=== PATIENT | female | born 1960 | race Hispanic/Latino ===

== ENCOUNTER 2017-10-02 17:50 | Emergency (ER) | payer MEDICAID ==
[~2017-10-02 17:50] MED LIST: ACET1TAB12 PO; AMLO10TA2 PO; CLON0.2T PO; ESOM40CA PO; GLIP10TA9 PO; LABE300T2 PO; LINA5TAB PO; LOSA1TAB54 PO; METF10004 PO
[2017-10-02 18:51] LABS: BASOPHILS % (AUTO) 0.9 % (0.0-5.0); EOSINOPHILS % (AUTO) 1.7 % (0.0-8.0); HEMATOCRIT 34.2 % (36-48); LYMPHOCYTES % (AUTO) 13.2 % (21.0-51.0); MEAN CORPUSCULAR HGB CONC 35.2 g/dL (32.0-36.0); MEAN CORPUSCULAR VOLUME 96.8 fL (79-99); MONOCYTES % (AUTO) 11.4 % (3.0-13.0); NEUTROPHILS % (AUTO) 72.8 % (40.0-77.0); PLATELET COUNT (AUTO) 297 K/uL (130-400); RED BLOOD CELL COUNT(AUTO) 3.53 MIL/uL (4.00-5.50); WHITE BLOOD COUNT (AUTO) 15.6 K/uL (4.8-10.8)
[2017-10-02 19:03] LABS: CREATININE 1.3 mg/dL (0.5-1.5); POTASSIUM 3.6 mmol/L (3.5-5.1)
[2017-10-02 19:08] LABS: ALBUMIN 2.9 g/dL (3.5-5.0); BILIRUBIN,TOTAL 0.6 mg/dL (0.2-1.0); TOTAL PROTEIN, SERUM 7.8 g/dL (6.0-8.3)
[2017-10-02] MEDS ORDERED: CLINDAMYCIN 600 MG/D5% WATER 50 ML IV ONE (19:09)
[2017-10-02] MEDS ORDERED: SODIUM CHLORIDE 0.9% 1000ML 1,000 ML IV ONE (19:09)
[2017-10-02] MEDS ORDERED: LIDOCAINE HCL 1% 20 ML VIAL ONE (19:27)
[2017-10-02] MEDS ORDERED: CEFTRIAXONE SODIUM 1 GM ONE (20:17)
== END 2017-10-02 20:47 | disposition home or self-care (01) ==
LOC: EDH 17:50
DX: L02.31 Cutaneous abscess of buttock (principal); E11.9 Type 2 diabetes mellitus without complications; E78.5 Hyperlipidemia, unspecified; I10 Essential (primary) hypertension
CPT/HCPCS: 36415; 80053; 85025; 87070; 87076; 87077; 87186; 96365; 96375; 99284; J0696; J3490; J7030

== ENCOUNTER 2019-06-06 12:47 | Emergency (ER) | payer MEDICAID ==
[~2019-06-06 12:47] MED LIST changes: -AMLO10TA2 PO; +AMLO10TA7 PO; +METF-446 PO; -METF10004 PO
[2019-06-06 13:26] LABS: BASOPHILS % (AUTO) 0.4 % (0.0-5.0); EOSINOPHILS % (AUTO) 1.8 % (0.0-8.0); HEMATOCRIT 41.3 % (36-48); LYMPHOCYTES % (AUTO) 15.5 % (21.0-51.0); MEAN CORPUSCULAR HEMOGLOBIN 32.3 pg (27.0-33.0); MEAN CORPUSCULAR HGB CONC 33.4 g/dL (32.0-36.0); MEAN CORPUSCULAR VOLUME 96.7 fL (79-99); MONOCYTES % (AUTO) 8.1 % (3.0-13.0); NEUTROPHILS % (AUTO) 73.8 % (40.0-77.0); PLATELET COUNT (AUTO) 318 K/uL (130-400); RED BLOOD CELL COUNT(AUTO) 4.27 MIL/uL (4.00-5.50); RED CELL DISTRIBUTION WIDTH 12.4 % (11.0-15.5); WHITE BLOOD COUNT (AUTO) 10.8 K/uL (4.8-10.8)
[2019-06-06 13:27] LABS: APPEARANCE,URINE Clear (CLEAR); BILIRUBIN,URINE Negative (NEGATIVE); COLOR,URINE Yellow (YELLOW); GLUCOSE, URINE (UA) >=1000 mg/dL (NEGATIVE); KETONES,URINE Negative (NEGATIVE); LEUKOCYTE ESTERASE ,URINE Small (NEGATIVE); NITRATE,URINE Negative (NEGATIVE); OCCULT BLOOD,URINE Trace (NEGATIVE); PROTEIN,URINE Trace mg/dL (NEGATIVE); UROBILINOGEN,URINE 0.2 mg/dL (0.2-1.0)
[2019-06-06 13:33] LABS: POTASSIUM 3.7 mmol/L (3.5-5.1)
[2019-06-06] MEDS ORDERED: ONDANSETRON ODT 4 MG TAB ONE (13:33)
[2019-06-06] MEDS ORDERED: DICYCLOMINE HCL 10 MG/ML 2ML AMP IM ONE (13:33)
[2019-06-06 13:34] LABS: BACTERIA,URINE Rare /HPF (None Seen); RBC,URINE 0-1 /HPF (0-1); SQUAMOUS EPITHELIAL CELL,UR Rare /HPF (0-2); WBC,URINE 51-100 /HPF (0-1)
[2019-06-06 13:37] LABS: ALBUMIN 3.6 g/dL (3.5-5.0); BILIRUBIN,TOTAL 0.5 mg/dL (0.2-1.0); TOTAL PROTEIN, SERUM 8.3 g/dL (6.0-8.3)
[2019-06-06] MEDS ORDERED: NITROFURANTOIN MONOHYD/M-CRYST 100 MG CAPSULE PO ONE (14:02)
== END 2019-06-06 14:49 | disposition home or self-care (01) ==
LOC: EDH 12:47
DX: N39.0 Urinary tract infection, site not specified (principal); R19.7 Diarrhea, unspecified; I25.10 Atherosclerotic heart disease of native coronary artery without angina pectoris; E11.9 Type 2 diabetes mellitus without complications; E78.5 Hyperlipidemia, unspecified; I10 Essential (primary) hypertension; E07.9 Disorder of thyroid, unspecified; Z90.49 Acquired absence of other specified parts of digestive tract; Z98.890 Other specified postprocedural states
CPT/HCPCS: 36415; 80053; 81001; 83690; 85025; 96372; 99284; J0500

== ENCOUNTER 2019-09-12 16:19 | Inpatient (IN) | payer MEDICAID ==
[~2019-09-12] VITALS: Ht 149.9 cm; Wt 69.9 kg
[2019-09-12] MEDS ORDERED: CEFTRIAXONE SODIUM 2 GM VIAL ONE (17:03)
[2019-09-12] MEDS ORDERED: VANCOMYCIN 1GM+NS 250ML 250 ML IV ONE (17:04)
[2019-09-12] MEDS ORDERED: SODIUM CHLORIDE 0.9% 1000ML 1,000 ML IV ONE (17:04)
[2019-09-12 17:10] LABS: BASOPHILS % (AUTO) 0.4 % (0.0-5.0); EOSINOPHILS % (AUTO) 2.8 % (0.0-8.0); HEMATOCRIT 38.8 % (36-48); MEAN CORPUSCULAR HEMOGLOBIN 32.3 pg (27.0-33.0); MEAN CORPUSCULAR HGB CONC 33.8 g/dL (32.0-36.0); MEAN CORPUSCULAR VOLUME 95.6 fL (79-99); MONOCYTES % (AUTO) 8.6 % (3.0-13.0); NEUTROPHILS % (AUTO) 71.7 % (40.0-77.0); PLATELET COUNT (AUTO) 322 K/uL (130-400); RED BLOOD CELL COUNT(AUTO) 4.06 MIL/uL (4.00-5.50); RED CELL DISTRIBUTION WIDTH 13.2 % (11.0-15.5)
[2019-09-12 17:33] LABS: CARBON DIOXIDE 27 mmol/L (21-32); CHLORIDE 102 mmol/L (101-111); CREATININE 1.3 mg/dL (0.5-1.5); GLOMERULAR FILTR. RATE CALC 44 mL/min (>60); GLUCOSE,RANDOM 114 mg/dL (70-105); POTASSIUM 4.1 mmol/L (3.5-5.1); SODIUM SERUM 139 mmol/L (136-145); UREA NITROGEN, BLOOD 29 mg/dL (7-18)
[2019-09-12 17:34] LABS: INR 0.84 (0.85-1.15); PARTIAL THROMBOPLASTIN TIME 26.4 SEC (26.3-35.5); PROTHROMBIN TIME 9.1 SEC (9.6-11.6)
[2019-09-12 17:48] LABS: ALANINE AMINOTRANSFERASE 30 U/L (12-78); ALBUMIN 3.3 g/dL (3.5-5.0); ASPARTATE AMINOTRANSFERASE 20 U/L (10-37); BILIRUBIN,TOTAL 0.3 mg/dL (0.2-1.0); CREATINE KINASE, TOTAL 161 U/L (21-232); MYOGLOBIN 79 ng/mL (10-92); TOTAL PROTEIN, SERUM 8.7 g/dL (6.0-8.3); TROPONIN I < 0.04 ng/mL (0.00-0.06)
[2019-09-12 17:55] LABS: APPEARANCE,URINE Cloudy (CLEAR); BILIRUBIN,URINE Negative (NEGATIVE); COLOR,URINE Yellow (YELLOW); GLUCOSE, URINE (UA) Negative (NEGATIVE); KETONES,URINE Negative (NEGATIVE); LEUKOCYTE ESTERASE ,URINE Moderate (NEGATIVE); NITRATE,URINE Negative (NEGATIVE); OCCULT BLOOD,URINE Trace (NEGATIVE); PH,URINE 5.5 (5.0-8.0); PROTEIN,URINE POS 1+ mg/dL (NEGATIVE)
[2019-09-12 18:20] LABS: BACTERIA,URINE Few /HPF (None Seen); RBC,URINE None Seen /HPF (0-1); WBC,URINE 26-50 /HPF (0-1)
[2019-09-12] MEDS ORDERED: ACETAMINOPHEN 325 MG TAB PO PRN (19:00)
[2019-09-12] MEDS ORDERED: VANCOMYCIN PROTOCOL PER PHARMACY IV SCH (19:00)
[2019-09-12] MEDS ORDERED: LACTULOSE 20 GM/30 ML UDCUP PO PRN (19:00)
[2019-09-12] MEDS ORDERED: HYDRALAZINE HCL 20 MG/ML VIAL IV PRN (19:00)
[2019-09-12] MEDS ORDERED: MORPHINE SULFATE 2 MG/ML 1ML SYG IV PRN (19:00)
[2019-09-12] MEDS ORDERED: ONDANSETRON HCL 4 MG/2 ML VIAL IV PRN (19:00)
[2019-09-12] MEDS: INSULIN HUMULIN R 100 UNIT/ML 3ML SQ SCH (21:00)
[2019-09-12 21:10] VITALS: BP 151/82
[2019-09-12] MEDS: ZOSYN 3.375GM+NS 50ML 50 ML IV SCH (21:35)
[2019-09-12] MEDS: SODIUM CHLORIDE 0.9% 1000ML 1,000 ML IV SCH (21:35)
[2019-09-12] MEDS: VANCOMYCIN 1GM+NS 250ML 250 ML IV SCH (22:03)
[2019-09-12] MEDS ORDERED: SIMV-46 PO (23:44)
[2019-09-12] MEDS ORDERED: LABE200T5 PO (23:45)
[2019-09-12] MEDS ORDERED: DOCU250C91 PO (23:46)
[2019-09-12] MEDS ORDERED: LEVO50 PO (23:51)
[2019-09-12] MEDS ORDERED: SULF1TAB42 PO (23:53)
[2019-09-13] VITALS: BP 134/83
[2019-09-13 04:00] VITALS: BP 138/77
[2019-09-13 05:08] LABS: BASOPHILS % (AUTO) 0.4 % (0.0-5.0); HEMATOCRIT 35.8 % (36-48); MEAN CORPUSCULAR HEMOGLOBIN 31.7 pg (27.0-33.0); MEAN CORPUSCULAR HGB CONC 32.4 g/dL (32.0-36.0); MEAN CORPUSCULAR VOLUME 97.8 fL (79-99); MONOCYTES % (AUTO) 9.8 % (3.0-13.0); NEUTROPHILS % (AUTO) 68.5 % (40.0-77.0); PLATELET COUNT (AUTO) 286 K/uL (130-400); RED BLOOD CELL COUNT(AUTO) 3.66 MIL/uL (4.00-5.50); RED CELL DISTRIBUTION WIDTH 13.3 % (11.0-15.5); WHITE BLOOD COUNT (AUTO) 10.5 K/uL (4.8-10.8)
[2019-09-13] MEDS: ZOSYN 3.375GM+NS 50ML 50 ML IV SCH ×3 (05:15→20:37)
[2019-09-13 05:41] LABS: CREATININE 1.1 mg/dL (0.5-1.5)
[2019-09-13] MEDS ORDERED: KETOROLAC TROMETHAMINE 15MG/ML ONE (06:03)
--- NOTE | 2019-09-13 06:05 | NUR ---
PAIN MANAGEMENT PATIENT COMPLAINED OF PAIN TO LT ANKLE AND LT HEEL, ON A SCALE OF ONE TO TEN AT TEN. ACCORDING TO PATIENT THE MORPINE DID NOT HELP THE PAIN. I CALLED NURSE PRACTICER DRYW[employer] CARRIER INFORMED HIM OF ABOVE. ORDERS RECEIVED FOR TORADOL 15 MG IVP EVERY 6 HOURS AND NEEDED FOR PAIN 4-10. PATIENT MADE AWARE, VERBALIZED UNDERSTANDING. EDUCATION DONE ON MEDICATION PRIOR TO ADMINISTERING IT.
[2019-09-13] MEDS: INSULIN HUMULIN R 100 UNIT/ML 3ML SQ SCH ×4 (06:12→20:52)
[2019-09-13 07:33] VITALS: BP 146/85
--- NOTE | 2019-09-13 08:40 | NUR ---
DR. ZUÑIGA ATTEMPTED TO CALL MD TO INFORM OF CONSULT. NO ANSWER AT THIS TIME, WILL REATTEMPT TO CALL. Addendum: 09/13/19 at 0961 by CECILIA ZACARIAS RN RN MD AWARE OF CONSULT
[2019-09-13] MEDS ORDERED: FAMOTIDINE 20MG TAB 20 MG TAB PO SCH (09:00)
[2019-09-13] MEDS: ENOXAPARIN SODIUM 40 MG/0.4 ML SYRINGE SQ SCH (09:39)
[2019-09-13 11:25] VITALS: BP 138/84
[2019-09-13] MEDS: KETOROLAC TROMETHAMINE 15MG/ML IV PRN (13:24)
[2019-09-13 15:49] VITALS: BP 145/69
[2019-09-13] MEDS: SODIUM CHLORIDE 0.9% 1000ML 1,000 ML IV SCH (16:52)
[2019-09-13 20:00] VITALS: BP 136/70
[2019-09-13] MEDS: LABETALOL HCL 200 MG TABLET PO SCH (20:37)
[2019-09-13] MEDS: SIMVASTATIN 20 MG TABLET PO SCH (20:37)
[2019-09-14] VITALS: BP 138/76
[2019-09-14 04:00] VITALS: BP 142/80
[2019-09-14] MEDS: ZOSYN 3.375GM+NS 50ML 50 ML IV SCH ×3 (05:01→20:54)
[2019-09-14 05:55] LABS: BASOPHILS % (AUTO) 0.7 % (0.0-5.0); EOSINOPHILS % (AUTO) 3.5 % (0.0-8.0); LYMPHOCYTES % (AUTO) 23.8 % (21.0-51.0); MEAN CORPUSCULAR HEMOGLOBIN 31.8 pg (27.0-33.0); MEAN CORPUSCULAR HGB CONC 32.6 g/dL (32.0-36.0); MEAN CORPUSCULAR VOLUME 97.8 fL (79-99); NEUTROPHILS % (AUTO) 61.6 % (40.0-77.0); PLATELET COUNT (AUTO) 281 K/uL (130-400); RED BLOOD CELL COUNT(AUTO) 3.58 MIL/uL (4.00-5.50); RED CELL DISTRIBUTION WIDTH 13.2 % (11.0-15.5); WHITE BLOOD COUNT (AUTO) 8.3 K/uL (4.8-10.8)
[2019-09-14] MEDS ORDERED: INSULIN HUMULIN 70/30 100 UNIT/ML 3ML SQ ONE (06:14)
[2019-09-14 06:21] LABS: ALBUMIN 2.5 g/dL (3.5-5.0); BILIRUBIN,TOTAL 0.2 mg/dL (0.2-1.0); POTASSIUM 4.3 mmol/L (3.5-5.1); TOTAL PROTEIN, SERUM 7.1 g/dL (6.0-8.3)
[2019-09-14] MEDS: LEVOTHYROXINE 25 MCG TABLET PO SCH (06:39)
[2019-09-14] MEDS: INSULIN HUMULIN R 100 UNIT/ML 3ML SQ SCH ×4 (06:42→21:04)
[2019-09-14] MEDS ORDERED: INSULIN HUMULIN 70/30 100 UNIT/ML 3ML SQ SCH ×2 (07:30→16:30)
[2019-09-14 08:00] VITALS: BP 127/70
[2019-09-14] MEDS: KETOROLAC TROMETHAMINE 15MG/ML IV PRN ×2 (08:07→18:11)
[2019-09-14] MEDS ORDERED: DEXTROSE 50%-WATER 50 ML DISP.SYRIN IV PRN (09:45)
[2019-09-14] MEDS ORDERED: GLUCAGON 1MG KIT 1 MG ML IM PRN (09:45)
[2019-09-14] MEDS: DOCUSATE SODIUM 100 MG CAP PO SCH (11:36)
[2019-09-14] MEDS: LABETALOL HCL 200 MG TABLET PO SCH ×2 (11:38→20:54)
[2019-09-14] MEDS: ENOXAPARIN SODIUM 40 MG/0.4 ML SYRINGE SQ SCH (11:44)
[2019-09-14] MEDS: SODIUM CHLORIDE 0.9% 1000ML 1,000 ML IV SCH (11:45)
[2019-09-14 12:00] VITALS: BP 130/68
[2019-09-14 16:00] VITALS: BP 132/80
[2019-09-14] MEDS: INSULIN HUMULIN 70/30 100 UNIT/ML 3ML SQ SCH (17:03)
[2019-09-14] MEDS: VANCOMYCIN 1GM+NS 250ML 250 ML IV SCH (17:10)
[2019-09-14 19:34] VITALS: BP 136/77
[2019-09-14] MEDS: SIMVASTATIN 20 MG TABLET PO SCH (20:54)
[2019-09-15 00:03] VITALS: BP 141/78
[2019-09-15 03:27] VITALS: BP 142/74
[2019-09-15] MEDS: ZOSYN 3.375GM+NS 50ML 50 ML IV SCH ×3 (05:18→20:32)
[2019-09-15] MEDS: INSULIN HUMULIN R 100 UNIT/ML 3ML SQ SCH ×4 (05:20→20:22)
[2019-09-15 05:26] LABS: BASOPHILS % (AUTO) 0.4 % (0.0-5.0); EOSINOPHILS % (AUTO) 4.4 % (0.0-8.0); HEMATOCRIT 33.2 % (36-48); LYMPHOCYTES % (AUTO) 21.7 % (21.0-51.0); MEAN CORPUSCULAR HEMOGLOBIN 31.8 pg (27.0-33.0); MEAN CORPUSCULAR HGB CONC 32.2 g/dL (32.0-36.0); MEAN CORPUSCULAR VOLUME 98.5 fL (79-99); MONOCYTES % (AUTO) 8.1 % (3.0-13.0); PLATELET COUNT (AUTO) 275 K/uL (130-400); RED BLOOD CELL COUNT(AUTO) 3.37 MIL/uL (4.00-5.50); RED CELL DISTRIBUTION WIDTH 13.5 % (11.0-15.5); WHITE BLOOD COUNT (AUTO) 9.6 K/uL (4.8-10.8)
[2019-09-15 05:47] LABS: ALBUMIN 2.5 g/dL (3.5-5.0); BILIRUBIN,TOTAL 0.2 mg/dL (0.2-1.0); CREATININE 0.9 mg/dL (0.5-1.5); POTASSIUM 4.1 mmol/L (3.5-5.1); TOTAL PROTEIN, SERUM 6.9 g/dL (6.0-8.3)
[2019-09-15] MEDS: LEVOTHYROXINE 25 MCG TABLET PO SCH (06:34)
[2019-09-15] MEDS: INSULIN HUMULIN 70/30 100 UNIT/ML 3ML SQ SCH ×2 (06:37→16:51)
[2019-09-15 08:00] VITALS: BP 146/83
[2019-09-15] MEDS: KETOROLAC TROMETHAMINE 15MG/ML IV PRN (08:37)
[2019-09-15] MEDS: DOCUSATE SODIUM 100 MG CAP PO SCH (09:00)
[2019-09-15 11:35] VITALS: BP 157/90
[2019-09-15] MEDS: LABETALOL HCL 200 MG TABLET PO SCH ×2 (11:38→20:32)
[2019-09-15] MEDS: FAMOTIDINE/PF 20 MG/2 ML VIAL IV SCH (11:39)
[2019-09-15] MEDS: ENOXAPARIN SODIUM 40 MG/0.4 ML SYRINGE SQ SCH (11:43)
[2019-09-15] MEDS: SODIUM CHLORIDE 0.9% 1000ML 1,000 ML IV SCH (11:46)
[2019-09-15] MEDS: ACETAMINOPHEN 325 MG TAB PO PRN ×2 (11:49→23:39)
--- NOTE | 2019-09-15 14:00 | NUR ---
ATTEMPTED TO CALL BOTH NUMBERS ON THE FACE SHEET. NOTED NO INITIAL ASSESSMENT IN THE CHART- CALL TO INITIATE VIA PHONE- NO ANSWER FOR PATIENTS NUMBER; CALL TO SONS NUMBER DOES NOT GO THROUGH. WILL ADVISE AND FOLLOW UP . SO FAR NO TRIGGERS TO CM'S VIA RN OR PATIENT CONCERNS Addendum: 09/15/19 at 1403 by CURT MACHADO RN CM Amended: Links added.
[2019-09-15 16:00] VITALS: BP 125/68
[2019-09-15] MEDS: VANCOMYCIN 1GM+NS 250ML 250 ML IV SCH (17:35)
[2019-09-15 20:00] VITALS: BP 157/75
--- NOTE | 2019-09-15 20:32 | NUR ---
MEDS SHIFT ASSESSMENT DONE, PLEASE REFER TO CHART. DUE MEDS ADMINISTERED, TOLERATED WELL. KEPT RESTED AND COMFORTABLE IN BED. CALL LIGHT WITHIN REACH. WILL MONITOR PT. Addendum: 09/16/19 at 0156 by GRACY RANKIN RN RN Amended: Links added.
[2019-09-15] MEDS: SIMVASTATIN 20 MG TABLET PO SCH (20:33)
--- NOTE | 2019-09-15 23:39 | NUR ---
PAIN PT COMPLAINTS OF LEFT ANKLE PAINS. MEDICATED WITH TYLENOL PO. KEPT LEFT LEG ELEVATED. WILL RE-ASSESS PT.
[2019-09-16 00:40] VITALS: BP 155/82
--- NOTE | 2019-09-16 02:00 | NUR ---
ROUNDS PT RESTING WELL, FAIRLY ASLEEP WITH RESPIRATIONS EVEN AND UNLABORED. NO NOTED DISTRESS. KEPT UNDISTURBED FOR NOW. WILL MONITOR PT. CALL LIGHT WITHIN REACH.
[2019-09-16] MEDS: SODIUM CHLORIDE 0.9% 1000ML 1,000 ML IV SCH (02:52)
[2019-09-16 04:00] VITALS: BP 144/77
[2019-09-16] MEDS: ZOSYN 3.375GM+NS 50ML 50 ML IV SCH ×2 (04:21→13:00)
[2019-09-16 05:07] LABS: BASOPHILS % (AUTO) 0.4 % (0.0-5.0); EOSINOPHILS % (AUTO) 4.1 % (0.0-8.0); HEMATOCRIT 32.6 % (36-48); LYMPHOCYTES % (AUTO) 20.5 % (21.0-51.0); MEAN CORPUSCULAR HEMOGLOBIN 31.1 pg (27.0-33.0); MEAN CORPUSCULAR HGB CONC 31.9 g/dL (32.0-36.0); MEAN CORPUSCULAR VOLUME 97.6 fL (79-99); MONOCYTES % (AUTO) 7.9 % (3.0-13.0); NEUTROPHILS % (AUTO) 66.8 % (40.0-77.0); PLATELET COUNT (AUTO) 283 K/uL (130-400); RED BLOOD CELL COUNT(AUTO) 3.34 MIL/uL (4.00-5.50); RED CELL DISTRIBUTION WIDTH 13.4 % (11.0-15.5); WHITE BLOOD COUNT (AUTO) 9.9 K/uL (4.8-10.8)
[2019-09-16 05:27] LABS: ALBUMIN 2.5 g/dL (3.5-5.0); BILIRUBIN,TOTAL 0.3 mg/dL (0.2-1.0); CREATININE 0.9 mg/dL (0.5-1.5); POTASSIUM 3.6 mmol/L (3.5-5.1); TOTAL PROTEIN, SERUM 7.1 g/dL (6.0-8.3)
[2019-09-16] MEDS: INSULIN HUMULIN R 100 UNIT/ML 3ML SQ SCH ×3 (05:56→16:30)
[2019-09-16] MEDS: INSULIN HUMULIN 70/30 100 UNIT/ML 3ML SQ SCH ×2 (05:57→16:30)
[2019-09-16] MEDS: LEVOTHYROXINE 25 MCG TABLET PO SCH (06:06)
--- NOTE | 2019-09-16 06:06 | NUR ---
MEDS HELD PT'S INSULIN DOSE AT THIS TIME. PT'S BLOOD SUGAR=73 AND PT IS SLEEPY. DUE MEDS ADMINISTERED WITH APPLE JUICE, TOLERATED WELL. FOR MORE CARE.
[2019-09-16 08:00] VITALS: BP 148/76
[2019-09-16] MEDS: FAMOTIDINE/PF 20 MG/2 ML VIAL IV SCH (08:55)
[2019-09-16] MEDS: ENOXAPARIN SODIUM 40 MG/0.4 ML SYRINGE SQ SCH (08:55)
[2019-09-16] MEDS: DOCUSATE SODIUM 100 MG CAP PO SCH (08:55)
[2019-09-16] MEDS: LABETALOL HCL 200 MG TABLET PO SCH (08:56)
[2019-09-16 11:59] VITALS: BP 160/77
[2019-09-16 16:00] VITALS: BP 174/93
--- NOTE | 2019-09-16 16:57 | NUR ---
SECURITY WAS CALLED FOR PT .VALUABLES , PT IS GOING TO BE DISCHARGE ,B
[2019-09-16] MEDS: VANCOMYCIN 1GM+NS 250ML 250 ML IV SCH (17:00)
--- NOTE | 2019-09-16 18:20 | NUR ---
DISCHARGE SUMMARY WAS RE VIEW AND ANTIBOTICS TO BE COMPLETED ,,, DIRECTED PER DR. PRESCRIPTION, , UNDERSTOOD . EDUCATION . SL TO HER RFA, WAS DC, NOTED NO HEMATOMA OR REDNESS. SM PRESSURE DRSG APPLICATION ON . LT FOOT . WITH NO INCREASE OF SWELLING OR REDNESS ,P T STATED NO PAIN AND HAS APPT WITH HER PRIVATE DR. ON 09/17/19 IN [facility] AND WILL SEE HIM TOMMORROW,
[2019-09-17] MEDS ORDERED: INSULIN HUMULIN 70/30 100 UNIT/ML 3ML SQ SCH ×2 (07:30)
== END 2019-09-16 18:30 | disposition home or self-care (01) | DRG 720 ==
LOC: EDH 16:19 → EDHIP 16:20 → 3BH 20:47
PROVIDERS: ADMIT Internal Medicine; ATTEND Internal Medicine
DX: A41.9 Sepsis, unspecified organism (principal); N17.9 Acute kidney failure, unspecified; E11.40 Type 2 diabetes mellitus with diabetic neuropathy, unspecified; E11.51 Type 2 diabetes mellitus with diabetic peripheral angiopathy without gangrene; N39.0 Urinary tract infection, site not specified; I10 Essential (primary) hypertension; L03.116 Cellulitis of left lower limb; E03.9 Hypothyroidism, unspecified; K21.9 Gastro-esophageal reflux disease without esophagitis; E78.5 Hyperlipidemia, unspecified; I25.10 Atherosclerotic heart disease of native coronary artery without angina pectoris; Z95.5 Presence of coronary angioplasty implant and graft; Z86.73 Personal history of transient ischemic attack (TIA), and cerebral infarction without residual deficits; Z83.3 Family history of diabetes mellitus; Z82.49 Family history of ischemic heart disease and other diseases of the circulatory system
CPT/HCPCS: 36415; 71045; 73718; 80048; 80053; 80202; 81001; 82550; 82948; 83605; 83874; 84145; 84484; 85025; 85610; 85730; 87040; 87088; 93005; 93925; 93971; G0378; J0696; J1650; J1815; J1885; J2543; J3370; J3490; J7030